=== PATIENT | female | born 1970 | race Caucasian/White ===

== ENCOUNTER → 2019-02-04 | Outpatient (CLI) | payer OTHER | LOC: M RAD 07:07 | PROVIDERS: ATTEND General Practice | DX: Z53.9 Procedure and treatment not carried out, unspecified reason (principal) ==

== ENCOUNTER → 2019-03-05 | Outpatient (CLI) | payer OTHER ==
--- NOTE | 2019-03-05 14:07 | REPMRS ---
Patient History The patient states she has not had a clinical breast exam in over a year. No known family history of cancer. The [facility] lifetime risk for breast cancer is 8.0%. Digital Mammo Screening Bilat: March 05, 2019 - Exam #: [id number] Bilateral CC and MLO view(s) were taken. Technologist: Radha Quinones, Technologist FINDINGS: The breast tissue is heterogeneously dense. This may lower the sensitivity of mammography. There has been no change in the appearance of the mammogram from the prior studies. There is a moderate amount of residual fibroglandular tissue which is fairly symmetric. There is no interval development of dominant mass, areas of architectural distortion, or clustered microcalcification typical of malignancy. Assessment: BI-RADS/ACR category 1 mammogram. Negative Mammogram. Recommendation Routine screening mammogram in 1 year (for women over age 40). This mammogram was interpreted with the aid of an FDA-approved computer-aided dectection system. Electronically Signed By: Guillaume Levin MD 03/05/19 1979
== END ==
LOC: M RAD 08:23
PROVIDERS: ATTEND General Practice
DX: Z12.31 Encounter for screening mammogram for malignant neoplasm of breast (principal)

== ENCOUNTER → 2019-11-06 | Outpatient (CLI) | payer SELFPAY | LOC: M LABSMTC 11:58 | PROVIDERS: ATTEND Pediatrics | DX: Z11.59 Encounter for screening for other viral diseases (principal) ==

== ENCOUNTER → 2020-01-22 | Outpatient (CLI) | payer SELFPAY | LOC: M LABSMTC 13:34 | PROVIDERS: ATTEND Pediatrics | DX: Z20.828 Contact with and (suspected) exposure to other viral communicable diseases (principal) ==

== ENCOUNTER → 2020-03-19 | Outpatient (CLI) | payer SELFPAY | LOC: M LABSMTC 14:45 | PROVIDERS: ATTEND Pediatrics | DX: Z20.828 Contact with and (suspected) exposure to other viral communicable diseases (principal) ==

== ENCOUNTER → 2020-05-25 | Outpatient (CLI) | payer SELFPAY | LOC: M LABSMTC 09:53 | PROVIDERS: ATTEND Pediatrics | DX: Z11.52 Encounter for screening for COVID-19 (principal) ==

== ENCOUNTER → 2020-07-09 | Outpatient (CLI) | payer SELFPAY | LOC: M LABSMTC 12:32 | PROVIDERS: ATTEND Pediatrics | DX: Z20.822 Contact with and (suspected) exposure to COVID-19 (principal) ==

== ENCOUNTER → 2020-07-13 | Outpatient (CLI) | payer SELFPAY | LOC: M LABSMTC 13:45 | PROVIDERS: ATTEND Pediatrics | DX: Z20.822 Contact with and (suspected) exposure to COVID-19 (principal) ==

== ENCOUNTER → 2020-10-01 | Outpatient (CLI) | payer SELFPAY | LOC: M LABSMTC 09:47 | PROVIDERS: ATTEND Pediatrics | DX: Z20.822 Contact with and (suspected) exposure to COVID-19 (principal) ==

== ENCOUNTER → 2020-12-06 | Outpatient (CLI) | payer OTHER ==
--- NOTE | 2020-12-06 10:19 | REPMRS ---
Patient History The patient states she has not had a clinical breast exam in over a year. No known family history of cancer. Tomosynthesis is performed. Volpara breast density is b. Tyrer-Cuzick lifetime risk of breast cancer 7.7%. Patient states no breast complaints today. Patient has signed MRS History Sheet. Digital Woman Screen Mammo: December 06, 2020 - Exam #: [id number] Bilateral CC and MLO view(s) were taken. Technologist: Angelina Dallas, Technologist Prior study comparison: March 05, 2019, bilateral digital mammo screening bilat, performed at [facility]. FINDINGS: The breast tissue is heterogeneously dense. This may lower the sensitivity of mammography. There has been no change in the appearance of the mammogram from the prior studies. There is a moderate amount of residual fibroglandular tissue which is fairly symmetric. There is no interval development of dominant mass, areas of architectural distortion, or clustered microcalcification typical of malignancy. Assessment: BI-RADS/ACR category 1 mammogram. Negative Mammogram. Recommendation Routine screening mammogram in 1 year (for women over age 40). This mammogram was interpreted with the aid of an FDA-approved computer-aided dectection system. Electronically Signed By: Guillaume Levin MD 12/06/20 1943
== END ==
LOC: M WHC 08:17
PROVIDERS: ATTEND Nurse Practitioner
DX: Z12.31 Encounter for screening mammogram for malignant neoplasm of breast (principal)

== ENCOUNTER 2022-01-11 10:08 | Emergency (ER) | payer OTHER ==
[~2022-01-11] VITALS: Ht 157.5 cm; Wt 99.5 kg
[2022-01-11] MEDS ORDERED: CETI10CA2 PO (10:28)
[2022-01-11] MEDS ORDERED: DOXY-443 PO (12:25)
[2022-01-11] MEDS ORDERED: DOXYCYCLINE HYCLATE 100MG TABLET PO ONE (12:25)
[2022-01-11 12:31] VITALS: BP 138/89
== END 2022-01-11 12:32 | disposition home or self-care (01) ==
LOC: M ED 10:08
DX: L02.411 Cutaneous abscess of right axilla (principal); Z88.7 Allergy status to serum and vaccine

== ENCOUNTER → 2024-07-03 | Outpatient (CLI) | payer OTHER ==
[~2024-07-03] MED LIST: CETI10CA2 PO; DOXY-441 PO
== END ==
LOC: M WHC 14:56
PROVIDERS: ATTEND Internal Medicine
DX: Z12.31 Encounter for screening mammogram for malignant neoplasm of breast (principal); R92.333 Mammographic heterogeneous density, bilateral breasts

== ENCOUNTER 2024-08-29 10:23 | Emergency (ER) | payer OTHER ==
[~2024-08-29] VITALS: Ht 167.6 cm; Wt 105.5 kg
[2024-08-29] MEDS ORDERED: PHEN37.58 (11:41)
[2024-08-29] MEDS: MORPHINE 2 MG/ML 1ML VIAL SC ONE (13:31)
[2024-08-29] MEDS: BOOSTRIX VACCINE (TETANUS/DIPHTH/ACEL. PERTUSSIS) 0.5ML SYR IM.IMMUN ONE (13:33)
[2024-08-29] MEDS ORDERED: CEPH500C PO (16:04)
[2024-08-29] MEDS ORDERED: IBUP-1022 PO (16:04)
[2024-08-29 16:10] VITALS: BP 122/66; TEMP 99.1; O2SAT 96
== END 2024-08-29 16:23 | disposition home or self-care (01) ==
LOC: EDBD 10:23 → M ED 10:23
DX: S51.811A Laceration without foreign body of right forearm, initial encounter (principal); S50.01XA Contusion of right elbow, initial encounter; S00.03XA Contusion of scalp, initial encounter; Y04.8XXA Assault by other bodily force, initial encounter; Y92.019 Unspecified place in single-family (private) house as the place of occurrence of the external cause; Y93.9 Activity, unspecified; Y99.9 Unspecified external cause status; Z23 Encounter for immunization; Z88.7 Allergy status to serum and vaccine; Z79.1 Long term (current) use of non-steroidal anti-inflammatories (NSAID); Z79.2 Long term (current) use of antibiotics; Z79.899 Other long term (current) drug therapy